=== PATIENT | male | born 1955 | race Caucasian/White ===

== ENCOUNTER 2024-07-12 16:12 | Inpatient (IN) | payer MEDICARE, OTHER, SELFPAY ==
[2024-07-12] VITALS (8 sets, daily range): BP systolic 126–152; BP diastolic 69–79; BMI 25.0; BMI 22.4
--- NOTE | 2024-07-12 12:11 | ED.GENMED ---
History of Present Illness
General
Chief Complaint: Abdominal Pain
Time Seen by Provider: 07/12/24 11:53
History of Present Illness
History of Present Illness:
69-year-old male presents to the emergency for evaluation of right lower quadrant pain that began abruptly and woke him from sleep today.He reports associated chills and nausea without fever or vomiting. No diarrhea, dysuria, or hematuria.
Prior history of inguinal hernia repair x 2
Past History
Past History
ED Past Medical History: HTN, Hypercholesterolemia and Other (chronic neck pain)
Social History
Personal:
Living: with family
Review of Systems
Review of Systems
Allergies reviewed?: Yes
All Other Systems: ROS reviewed and negative except as documented in HPI and ROS
Phy Exam
Physical Exam
Physical Exam:
GEN: Well appearing, NAD, WDWN
HEENT: Oral mucosa moist, no scleral icterus
Cardiac: Regular rate
Lung: No respiratory distress, no tachypnea
Abdomen: Soft, severe right lower quadrant tenderness, no rebound tenderness
MSK: No gross deformity or injuries
Skin: Good color, no pallor or jaundice, no rashes
Neuro: AO x3, moves all extremities freely
Psych: Calm, cooperative
Course
Orders/Labs/Results
Orders:
Orders
07/12/24 Breakfast
NPO
Allow oral meds: Yes
Allow clear liquids: Sips of Clears
NPO with Ice Chips: Yes
07/12/24 12:11
CT Abd/Pel (IV only)-DH only Urgent
Comment:
Reason For Exam: RLQ pain
07/12/24 12:47
Complete Blood Count/With Diff Urgent
Comprehensive Metabolic Panel Urgent
07/12/24 13:31
HYDROmorphone [Dilaudid] 0.5 mg IV NOW STA
07/12/24 13:36
Urinalysis Reflex To Culture Urgent
Date Specimen was Collected: 07/12/24
Time Specimen was Collected: 13:35
Urine Microscopic Reflex Cult Urgent
07/12/24 15:22
Piperacillin/Tazo 3.375 Gram [Zosyn] 3.375 gram in 50 ml IV NOW
07/12/24 15:23
HYDROmorphone [Dilaudid] 0.5 mg IV NOW STA
07/12/24 15:37
Type+Screen Stat
Prothrombin Time Urgent
07/12/24 15:50
Admit/Transfer Patient As Directed
Co-Sign Provider:
Level of Care: Inpatient admission
Assign to:: Medical/Surgical
Physician / Group: Cal
Diagnosis: Acute Appendicitis
Reason for Hospitalization: IV Abx, Surgical Consult
Expected length of stay greater than two midnights?: Yes
ELOS- Estimated Length of Stay in days: 3
I certify the patient meets the requirements for IP care: Yes
PRN Pain Medication Management As Directed
May give lesser potent ordered pain med per pt: Yes
preference::
Protocol:: Medication orders for pain may be administered in a
manner that supports deferring to patient preference
when the pt is:
- Requesting an ordered lesser potent pain medication.
Least to most potent pain medications are defined
as: acetaminophen < NSAID < tramadol < opioids
(morphine, oxycodone, hydromorphone).
- Requesting a lesser dose of the same medication IF
ORDERED.
- Requesting a less intrusive route of administration
if both routes are prescribed by the provider (PO <
IV).
07/12/24 15:52
SURGICAL CONSULT Routine
Consulting Provider: Alessandro Garcia
Was physician already notified: Yes
07/12/24 15:56
Code Status As Directed
Resuscitation Status: Full Code
07/12/24 16:00
ABO2 Urgent
BBK Wristband Number:
Associate notified that ABO2 has been ordered: [id number]
Date: 07/12/24
Time: 15:59
Supervisor Money Room ID: [id number]
07/12/24 16:03
Phytonadione [Mephyton] 10 mg PO NOW STA
07/12/24 17:11
Acetaminophen [Tylenol] 650 mg PO Q4HPRN PRN
Dextrose 5%/0.9%Sodchl 1000 ml [D5/0.9% Sodium Chloride] 1,000 ml IV 80 mls/hr
HYDROmorphone [Dilaudid] 0.25 mg IV Q3HPRN PRN
Lorazepam [Ativan] 0.5 mg PO DAILYPRN PRN
Ondansetron Injectable [Zofran] 4 mg IV Q6HPRN PRN
07/12/24 17:11
Activity As Directed
Activity Level: Out of Bed-Early Mobility
With Assistance
I&O [Intake/ Output] As Directed
Frequency: q12h
Pneumatic Compression Sleeves As Directed
Type: Knee high
Vital Signs As Directed
Frequency: Per unit guidelines
DX Deep Vein Thrombosis Video Routine
07/12/24 18:00
Ezetimibe [Zetia] 10 mg PO QPM
Rosuvastatin Calcium [Crestor] 40 mg PO QPM
07/12/24 22:00
Piperacillin/Tazo 3.375 Gram [Zosyn] 3.375 gram in 50 ml IV Q6H
07/13/24 06:00
Basic Metabolic Panel IN AM
Complete Blood Count/No Diff IN AM
Prothrombin Time IN AM
07/13/24 08:00
Amlodipine [Norvasc] 10 mg PO DAILY
Pantoprazole [Protonix] 40 mg PO DAILY
Valsartan [Diovan] 320 mg PO DAILY
07/14/24 06:00
Prothrombin Time IN AM
07/15/24 06:00
Prothrombin Time IN AM
07/16/24 06:00
Prothrombin Time IN AM
07/17/24 06:00
Prothrombin Time IN AM
Abnormal Lab Results
07/12/24 07/12/24 07/12/24
12:47 13:36 15:37
RBC 4.60 L 10^6/uL
(4.70-6.10)
MCH 31.3 H pg
(27.0-31.0)
Abs Immat Gran (auto) 0.1 H 10^3/uL
(0-0.05)
Absolute Neuts (auto) 9.5 H 10^3/uL
(1.4-6.5)
Absolute Lymphs (auto) 0.5 L 10^3/uL
(1.2-3.4)
Neutrophils % 91.1 H %
(42.2-75.2)
Lymphocytes % 4.4 L %
(20.5-51.1)
PT 29.2 H Sec
(11.4-14.6)
Glucose 113 H mg/dl
(70-99)
Urine Ketones 3+ A
(Negative)
Ur Occult Blood Reflex 1+ A
(Negative)
Urine RBC 7-10 A /HPF
(0-2)
07/12/24 12:47
07/12/24 12:47
Vital Signs
Initial and Last Documented VS:
Initial Vital Signs
Temp Pulse Resp BP Pulse Ox
98.3 F 65 16 150/79 98
07/12/24 11:20 07/12/24 11:20 07/12/24 11:20 07/12/24 11:20 07/12/24 11:20
Last Documented Vital Signs
Temp Pulse Resp BP Pulse Ox
98.7 F 69 18 152/73 94
07/12/24 17:15 07/12/24 17:15 07/12/24 17:15 07/12/24 17:15 07/12/24 17:15
MDM/Problems Addressed
MDM/Problems Addressed:
CT reveals acute appendicitis, will admit to the hospitalist service given his complex medical history, surgery will be consulted for operative intervention if appropriate
*Critical Care Note
Total Time (30-74mins, 75-104mins- exclusive of procedures): Not Applicable
ED Attending Note
-
Portions of this chart may have been created with voice recognition software.� Occasional wrong word or��sound alike� substitutions may have occurred due to the inherent limitations of voice recognition software.
Discharge Plan
Departure
Patient Disposition: Admit
Date of Disposition: 07/12/24
Time of Disposition: 14:46
Admit to: Med/Surg
Presentation/result/management discussed w/ accepting MD/DO: Surgery
Discharge Problem:
Acute appendicitis
Interventions
Interventions:
*Risk Screen - Suicide Last Done: 07/12/24 11:20
*General Assessment Last Done: 07/12/24 11:20
*Neglect/Abuse Screening Last Done: 07/12/24 11:20
ED- Fall Risk Assessment Last Done: 07/12/24 17:13
*ED COVID-19 Vaccine History Last Done: 07/12/24 17:13
*Nursing Disposition Last Done: 07/12/24 17:13
RA-Dzrqtj-Sbqyderiur Assessment Last Done: 07/12/24 12:46
Discharge Date and Time
Discharge Date/Time: 07/12/24 17:13
[2024-07-12 13:09] LABS: % Basophils 0.2 % (0-2); % Eosinophils 0.2 % (0-6); % Immature Granulocytes 0.5 % (0-0.5); % Lymphocytes 4.4 % (20.5-51.1); % Monocytes 3.6 % (1.7-9.3); % Neutrophils 91.1 % (42.2-75.2); Absolute Immature Granulocytes 0.1 10^3/uL (0-0.05); Absolute Lymphocytes 0.5 10^3/uL (1.2-3.4); Absolute Monocytes 0.4 10^3/uL (0.1-0.6); Absolute Neutrophils 9.5 10^3/uL (1.4-6.5); Hematocrit 40.1 % (39.0-52.0); Hemoglobin 14.4 g/dL (13.0-18.0); Mean Corp Hgb Conc. 35.9 g/dL (33.0-37.0); Mean Corpuscular Hgb 31.3 pg (27.0-31.0); Mean Corpuscular Volume 87.2 fL (80.0-94.0); Mean Platelet Volume 9.5 fL (7.4-10.4); Nucleated Red Blood Cells % 0 % (-); Platelet Count 149 10^3/uL (130-400); Red Cell Dist. Width 13.7 % (11.5-14.5); White Blood Cell Count 10.4 10^3/uL (4.8-10.8)
[2024-07-12 13:24] LABS: ALT (SGPT) 33 U/L (0-50); AST (SGOT) 37 U/L (17-59); Albumin 4.8 g/dl (3.5-5.0); Alkaline Phosphatase 46 U/L (38-126); Blood Urea Nitrogen 16 mg/dl (9-20); Calcium 9.5 mg/dl (8.4-10.2); Carbon Dioxide 22 mmol/L (22-30); Chloride 98 mmol/L (98-107); Estimated Creatinine Clearance 111 ml/min; Glucose 113 mg/dl (70-99); Potassium 4.8 mmol/L (3.5-5.1); Sodium 136 mmol/L (135-145); Total Protein 6.9 g/dl (6.3-8.2); eGFR > 60.00
[2024-07-12] MEDS: DILAUDID 0.5 MG IV ×2 (13:33→15:30)
[2024-07-12 13:51] LABS: Urine Albumin Negative (Neg - Trace); Urine Bilirubin Negative (Negative); Urine Color Yellow; Urine Glucose Negative (Negative); Urine Ketone 3+ (Negative); Urine Leukocyte Negative (Negative); Urine Nitrite Negative (Negative); Urine Occult Blood 1+ (Negative); Urine Urobilinogen Negative (Neg - 1+)
[2024-07-12 13:58] LABS: Urine Character Clear (Clear)
[2024-07-12 14:46] LABS: Urine Mucus Moderate
[2024-07-12 14:47] LABS: Urine Amorphous Seen
[2024-07-12 14:48] LABS: Urine White Cell 0-2 /HPF (0-5)
[2024-07-12] MEDS: ZOSYN 50 IV ×2 (15:29→22:00)
[2024-07-12 15:59] LABS: INR 2.77; PT 29.2 Sec (11.4-14.6)
--- NOTE | 2024-07-12 16:00 | HPS.HSE ---
Family Physician
-
Family Physician: Keshia Capone
Chief Complaint
-
Abdominal Pain
History of Present Illness
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 Patient awoke suddenly around 3AM this morning with abdominal pain. He reports
associated nausea with dry heaves, but no vomiting. He reports sweats and chills last night, but no recorded fevers at home. He reports abdominal pain continued to worsen throughout the morning prompting him to come to the emergency department for
evaluation.
Medical History
Past Medical History
Past Medical History: Reports Other
Additional Past Medical History:
Essential Hypertension
Hyperlipidemia
Recurrent DVT
GERD
Past Surgical History: Reports Other
Additional Past Surgical History:
Right Inguinal Hernia Repairs
Right Rotator Cuff Repair
Social History
Tobacco: Non-smoker
Alcohol: Daily (Two drinks nightly)
Family History
Family History: Not pertinent
Allergies / Home Medications
Allergies reflects when Allergies were last updated in [facility].
Home Medications with original date entered in [facility]
Allergy/Medication List:
Allergies
Allergy/AdvReac Type Severity Reaction Status Date / Time
No Known Allergies Allergy Verified 07/12/24 11:19
Home Medications
amlodipine 10 mg tablet 10 mg PO DAILY 07/12/24
azelastine 137 mcg (0.1 %) nasal spray 2 spray intranasal BIDPRN PRN congestion 07/12/24
calcium carbonate 500 mg PO DAILY 07/12/24
cholecalciferol (vitamin D3) 50 mcg (2,000 unit) tablet (Vitamin D3) 50 mcg PO DAILY 07/12/24
clobetasol 0.05 % topical cream 1 applic topical DAILYPRN PRN eczema breakout 07/12/24
cyanocobalamin (vitamin B-12) 1,000 mcg tablet 1,000 mcg PO DAILY 07/12/24
ezetimibe 10 mg tablet 10 mg PO QPM 07/12/24
lorazepam 0.5 mg tablet 0.5 mg PO DAILYPRN PRN panic 07/12/24
meclizine 25 mg tablet 25 mg PO TIDPRN PRN vertigo 07/12/24
omeprazole 40 mg capsule,delayed release 40 mg PO DAILY 07/12/24
polyvinyl alcohol 1.4 % eye drops 1 drp BOTH EYES Q4HPRN PRN dry eyes 07/12/24
ranitidine HCl 300 mg tablet 75 mg PO DAILY 07/12/24
rosuvastatin 40 mg tablet 40 mg PO QPM 07/12/24
tadalafil 10 mg tablet 10 mg PO DAILYPRN PRN ed 07/12/24
valsartan 320 mg tablet 320 mg PO DAILY 07/12/24
vitamin E 268 mg (400 unit) capsule 268 mg PO DAILY 07/12/24
warfarin 5 mg tablet 5 mg PO QPM 07/12/24
Review of Systems
-
A 12 point ROS was completed and negative except as noted: Yes
Constitutional: Reports Chills; Denies Fever
Respiratory: Denies Cough or Trouble Breathing
Cardiac: Denies Chest Pain or Palpitations
Physical Exam
Vital Signs
Vital Signs
Temp Pulse Resp BP Pulse Ox
98.3 F 70 15 134/70 93
07/12/24 11:20 07/12/24 15:45 07/12/24 15:45 07/12/24 14:00 07/12/24 15:45
Physical Exam
General: Comfortable and Conversant
HEENT: Anicteric and Moist mucous membranes
Respiratory: Clear and Non Labored Respirations
Cardiac: S1/S2 and Regular Rhythm
GI: Soft and Tender (Significant tenderness to palpation right lower quadrant)
Rectal: Deferred by Provider
Musculoskeletal: No Clubbing, No Cyanosis and No Edema
Skin: Warm and Dry
Neuro: Awake, Alert, Oriented and Nonfocal/grossly intact
Psych: Calm
Laboratory Results
-
07/12/24 12:47
07/12/24 12:47
Laboratory Results
Total Bilirubin 1.0 mg/dl (0.2-1.3) 07/12/24 12:47
AST 37 U/L (17-59) 07/12/24 12:47
ALT 33 U/L (0-50) 07/12/24 12:47
Alkaline Phosphatase 46 U/L (38-126) 07/12/24 12:47
Abd/Pelvis CT Scan:
There is acute appendicitis
The fluid-filled appendix measures 12 mm in diameter with mild periappendiceal inflammatory stranding and a 3 mm appendicolith
Data Reviewed
-
CT Scan: Report Reviewed by me
Lab Data: Labs Reviewed by me
Impression/Plan
-
Acute Appendicitis
-Consult General Surgery
-Continue NPO/IVFs
-Continue Zosyn
-Continue Dilaudid for Pain and Zofran for Nausea
Recurrent DVT
-INR currently 2.77 therefore will give dose of Vitamin K now
-Monitor INR Daily
-Will likely need bridge therapy given recurrent nature of his previous DVTs
Essential Hypertension
-Continue amlodipine and valsartan with hold parameters
Hyperlipidemia
-Continue Crestor and Zetia
GERD
-Continue Protonix
Code Status: Full Code
--- NOTE | 2024-07-12 16:05 | CON.GS ---
Medical History
-
Chief Complaint: abdominal pain
History of Present Illness:
Mr. Leal is a 69 yo male with a h/o HTN, HLD and provoked DVT to the RLE after a fracture to the foot with recurrence of DVT after discontinuation of anticoagulation now maintained on warfarin chronically who presents with abdominal pain which
began very early this morning awakening him from sleep. Initially the pain was near the umbilicus but then localized to the RLQ and was quite severe. He had associated chills and subjective fever. He notes the sensation that he had to pass a BM but
was unable. He had mild nausea and some dry heaving. On exam, there is significant local tenderness to the RLQ. No Rovsing or peritoneal signs.
Past Medical History
Past Medical History: GERD, HTN, Hypercholesterolemia and Other (DVT x2 RLE)
Past Surgical History: Hernia Repair (right inguinal hernia repair x2) and Orthopedic (right rotator cuff )
Social History
Tobacco: Non-Smoker
Alcohol: Occasional
Personal:
Living: With Family
Family History
Family History: Reviewed & Not Pertinent
Allergies / Home Medications
Allergy/AdvReac Type Severity Reaction Status Date / Time
No Known Allergies Allergy Verified 07/12/24 11:19
�Medication �Instructions �Recorded �Confirmed �Type
amlodipine 10 mg tablet 10 mg PO DAILY 07/12/24 07/12/24 History
azelastine 137 mcg (0.1 %) nasal 2 spray intranasal BIDPRN PRN 07/12/24 07/12/24 History
spray congestion
calcium carbonate 500 mg PO DAILY 07/12/24 07/12/24 History
cholecalciferol (vitamin D3) 50 50 mcg PO DAILY 07/12/24 07/12/24 History
mcg (2,000 unit) tablet (Vitamin
D3)
clobetasol 0.05 % topical cream 1 applic topical DAILYPRN PRN 07/12/24 07/12/24 History
eczema breakout
cyanocobalamin (vitamin B-12) 1,000 mcg PO DAILY 07/12/24 07/12/24 History
1,000 mcg tablet
ezetimibe 10 mg tablet 10 mg PO QPM 07/12/24 07/12/24 History
lorazepam 0.5 mg tablet 0.5 mg PO DAILYPRN PRN panic 07/12/24 07/12/24 History
meclizine 25 mg tablet 25 mg PO TIDPRN PRN vertigo 07/12/24 07/12/24 History
omeprazole 40 mg capsule,delayed 40 mg PO DAILY 07/12/24 07/12/24 History
release
polyvinyl alcohol 1.4 % eye drops 1 drp BOTH EYES Q4HPRN PRN dry eyes 07/12/24 07/12/24 History
ranitidine HCl 300 mg tablet 75 mg PO DAILY 07/12/24 07/12/24 History
rosuvastatin 40 mg tablet 40 mg PO QPM 07/12/24 07/12/24 History
tadalafil 10 mg tablet 10 mg PO DAILYPRN PRN ed 07/12/24 07/12/24 History
valsartan 320 mg tablet 320 mg PO DAILY 07/12/24 07/12/24 History
vitamin E 268 mg (400 unit) capsule 268 mg PO DAILY 07/12/24 07/12/24 History
warfarin 5 mg tablet 5 mg PO QPM 07/12/24 07/12/24 History
Review of Systems
-
History Source: Patient and Family
All other systems: Negative unless noted
A 10 point review of systems was completed, and was negative except as per HPI.
Physical Exam
Vital Signs
Temp Pulse Resp BP Pulse Ox
98.3 F 70 15 134/70 93
07/12/24 11:20 07/12/24 15:45 07/12/24 15:45 07/12/24 14:00 07/12/24 15:45
07/11/24 07/12/24 07/13/24
06:59 06:59 06:59
Actual Weight 86 kg
Body Mass Index (BMI) 25.0
Lab Results
07/12/24 12:47
07/12/24 12:47
WBC 10.4 10^3/uL (4.8-10.8) 07/12/24 12:47
Hgb 14.4 g/dL (13.0-18.0) 07/12/24 12:47
Hct 40.1 % (39.0-52.0) 07/12/24 12:47
Plt Count 149 10^3/uL (130-400) 07/12/24 12:47
Abs Immat Gran (auto) 0.1 10^3/uL (0-0.05) H 07/12/24 12:47
Neutrophils % 91.1 % (42.2-75.2) H 07/12/24 12:47
Physical Exam
General: Well Developed and Well Nourished
HEENT: Moist Mucous Membranes
Respiratory: Non Labored Respirations
GI: Soft, Non Distended and Tender (RLQ)
Skin: Warm and Dry
Neuro: Awake, Alert and AO x 3
Psych: Calm
Data Reviewed
-
CT Scan: Image Personally Visualized and interpreted, Report Reviewed by me, Discussed with Physician, Discussed with Patient and Discussed with Family
Labs: Labs Reviewed by me, Discussed with Physician, Discussed with Patient and Discussed with Family
Old Records: Reviewed
Assessment / Plan
-
69 yo male with h/o dvt on warfarin (INR 2.77) presenting with RLQ pain beginning about [address] imaging reviewed with acute appendicitis present with presence of appendicolith. No leukocytosis or fevers. Vital signs stable.
Admit to medicine service. Would recommend laparoscopic appendectomy as soon as INR is decreased enough to safely preform surgery
--Ok for clears tonight
--NPO in AM for tentative OR
--Reverse warfarin if medically appropriate otherwise will follow off warfarin until subtherapeutic
--Continue IV abx
--Medical management as per primary team
--- NOTE | 2024-07-12 16:07 | W.PN.UPDATE ---
Update Note
Progress Note Update
This is an addendum to the H&P written by Melody Marquez on 07/12/2024. Patient seen and examined independently with PA.
69-year-old male past medical history of recurrent DVT in right lower extremity on Coumadin, hypertension, hypercholesteremia, GERD, here with acute appendicitis.
N.p.o., IV fluids, Zosyn, general surgery consulted.
INR 2.77 so give vitamin K dose. Recheck INR in the morning. Will likely require coumadin bridge after surgery.
[2024-07-12] MEDS: MEPHYTON 10 MG PO (16:45)
[2024-07-12] MEDS: ZOFRAN 4 MG IV (17:42)
[2024-07-12] MEDS: D5/0.9% SODIUM CHLORIDE 1000 IV (17:43)
[2024-07-12] MEDS: DILAUDID 0.25 MG IV ×3 (17:43→22:29)
[2024-07-12] MEDS: CRESTOR 40 MG PO (17:43)
[2024-07-12] MEDS: ZETIA 10 MG PO (17:43)
[2024-07-12] MEDS: TYLENOL 650 MG PO (19:34)
[2024-07-12] MEDS: ATIVAN 0.5 MG PO (22:00)
--- NOTE | 2024-07-12 22:45 | PTCARENOTE ---
Scheduled pain medication not providing adequate pain relief, HP notified and 1x dose Dilaudid given.
[2024-07-13] VITALS (11 sets, daily range): BP systolic 121–150; BP diastolic 56–79
[2024-07-13] MEDS: DILAUDID 0.25 MG IV (01:17)
[2024-07-13] MEDS: DILAUDID 0.5 MG IV ×5 (02:46→21:55)
[2024-07-13] MEDS: ZOSYN 50 IV ×4 (04:07→23:18)
[2024-07-13] MEDS: D5/0.9% SODIUM CHLORIDE 1000 IV ×2 (05:43→21:52)
[2024-07-13 06:45] LABS: INR 2.46; PT 26.6 Sec (11.4-14.6)
[2024-07-13 07:01] LABS: Hematocrit 38.5 % (39.0-52.0); Hemoglobin 13.6 g/dL (13.0-18.0); Mean Corp Hgb Conc. 35.3 g/dL (33.0-37.0); Mean Corpuscular Hgb 31.3 pg (27.0-31.0); Mean Corpuscular Volume 88.7 fL (80.0-94.0); Mean Platelet Volume 9.8 fL (7.4-10.4); Platelet Count 148 10^3/uL (130-400); Red Blood Cell Count 4.34 10^6/uL (4.70-6.10); Red Cell Dist. Width 14.1 % (11.5-14.5); White Blood Cell Count 13.3 10^3/uL (4.8-10.8)
[2024-07-13 07:43] LABS: Blood Urea Nitrogen 13 mg/dl (9-20); Calcium 8.8 mg/dl (8.4-10.2); Carbon Dioxide 22 mmol/L (22-30); Chloride 100 mmol/L (98-107); Estimated Creatinine Clearance 94 ml/min; Glucose 135 mg/dl (70-99); Potassium 4.2 mmol/L (3.5-5.1); Sodium 137 mmol/L (135-145); eGFR > 60.00
[2024-07-13] MEDS: DIOVAN 320 MG PO (07:54)
[2024-07-13] MEDS: NORVASC 10 MG PO (07:55)
[2024-07-13] MEDS: PROTONIX 40 MG PO (07:55)
--- NOTE | 2024-07-13 11:10 | W.PN.HOSP.TC ---
Today's Communication/Plan
-
cont ZOsyn, see PN
Assessment / Plan
Assessment / Plan
69yo M with PMHx of HTN, HLD, DVT on life-long Coumadin , GERD, allergic rhinitis came with acute onset of abdominal pain in the morning before admisison, found acute unperforated appendicitis
A/P:
#Acute non-perforated appendicitis
NPO
Zosyn
GEnSx for mgmt
pain mgmt
Add Orimef as DIlaudid did not last long enough even with frequent injections (to avoid significant sedation with additional opioids)
#Hx of DVT on life long AC
s/p vit K 10mg in ED
Follow INR, pending <2.0 for surgical intervention and heparin bridging
Plan for FFP if urgent intervention planned, otherwise - will let INR drift down on its own as vit K activity is delayed (consent signed)
#Hepatic cysts
#L renal cyst
#Diverticulosis
High fiber diet
no addisional f/u
#GERD
#EssentiaL HT
#HLD
cont home meds when able
Use IV labetalol if needed for BP >180/105
DVT ppx - see above
FUll code
I have spent at least 59min reviewing chart, test results, communicationg with consultants and direct patient care
Anticipated Discharge: > 48 hours
Subjective/Interval History
-
Date of Service: July 13, 2024
Objective Data
-
Labs:
Laboratory Results
07/13/24
06:21
WBC 13.3 H
Hgb 13.6
Hct 38.5 L
Plt Count 148
PT 26.6 H
INR 2.46
Sodium 137
Potassium 4.2
Chloride 100
Carbon Dioxide 22
BUN 13
Creatinine 0.8
Glucose 135 H
Calcium 8.8
Vital Signs:
Vital Signs
Temp Pulse Resp BP Pulse Ox
99.0 F 72 18 142/68 96
07/13/24 08:07 07/13/24 08:07 07/13/24 08:07 07/13/24 08:07 07/13/24 08:07
I&O
07/12/24 07/13/24 07/14/24
06:59 06:59 05:59
Intake Total 1620 / 1620
Balance 1620 / 1620
Review of Systems
-
History Source: Patient
All other systems: Reviewed and negative
Abdomen/GI: Reports Abdominal Pain
Physical Exam
-
General: No Apparent Distress
HEENT: Normocephalic
Respiratory: Clear to Auscultation
Cardiac: Regular Rhythm
GI: Tender
Musculoskeletal: No Clubbing, No Cyanosis and No Edema
Neuro: Awake, Alert, Oriented and AO x 3
Psych: Calm
[2024-07-13] MEDS: OFIRMEV 100 IV ×2 (11:59→19:27)
[2024-07-13 12:44] LABS: Glycohemoglobin (HgbA1c) 5.5 % (4.0-5.6)
[2024-07-13 12:58] LABS: INR 2.24; PT 24.6 Sec (11.4-14.6)
--- NOTE | 2024-07-13 13:16 | W.PN.GS2 ---
Today's Communication / Plan
-
INR reversal
anticipate OR tomorrow
NPO
IV abx
Assessment / Plan
-
69 yo male with h/o dvt on warfarin (INR 2.77) presenting with RLQ pain beginning about [address] imaging reviewed with acute appendicitis present with presence of appendicolith. No leukocytosis or fevers. Vital signs stable.
Admit to medicine service. Would recommend laparoscopic appendectomy as soon as INR is decreased enough to safely preform surgery
s/p Vit K
--Remain NPO
--Recommend reversing INR to goal 1.5-1.6 if able
--Hematology/oncology consult. ?IVC filter
--Continue IV abx
--Medical management as per primary team
--Will anticipate operating tomorrow AM once INR reversed
Subjective Data
-
Date of Service: July 13, 2024
Patient states he is still in RLQ pain. He denies nausea or vomiting.
Objective Data
-
Intake and Output
07/12/24 07/13/24 07/14/24
06:59 06:59 05:59
Intake Total 1620 / 1620
Balance 1620 / 1620
Intake:
Oral fluids 480 / 480
IV fluids (Total) 1040 / 1040
IV piggybacks 100 / 100
Other:
Number of approximated MODERATE 2
amounts of urine
Number of approximated LARGE 1
amounts of urine
Vital Signs
Temp Pulse Resp BP Pulse Ox
99.0 F 72 18 142/68 96
07/13/24 08:07 07/13/24 08:07 07/13/24 08:07 07/13/24 08:07 07/13/24 08:07
Lab Results
07/13/24 06:21
07/13/24 06:21
Calcium 8.8 mg/dl (8.4-10.2) 07/13/24 06:21
Total Bilirubin 1.0 mg/dl (0.2-1.3) 07/12/24 12:47
AST 37 U/L (17-59) 07/12/24 12:47
ALT 33 U/L (0-50) 07/12/24 12:47
Alkaline Phosphatase 46 U/L (38-126) 07/12/24 12:47
Total Protein 6.9 g/dl (6.3-8.2) 07/12/24 12:47
Albumin 4.8 g/dl (3.5-5.0) 07/12/24 12:47
Physical Exam
-
General: Well Developed and Well Nourished
HEENT: Moist Mucous Membranes
Respiratory: Non Labored Respirations
GI: Soft, Non Distended and Tender (RLQ)
Skin: Warm and Dry
Neuro: Awake, Alert and AO x 3
Psych: Calm
--- NOTE | 2024-07-13 16:03 | CON.ONC ---
Impression
Impression
Remote but recurrent DVT requiring lifelong anticoagulation
Acute appendicitis
Hypertension
Hyperlipidemia
GERD
Plan
Plan
Short-term reversal for abdominal surgery
FFP 750-800 mL replacement based on weight
Additional Mephyton 5 mg p.o. now with NPO
Monitor INR post FFP
Monitor INR in the AM
Discontinue vitamin D
Antiphospholipid panel
Sequential TEDS
Postop day 1 Lovenox 40 mg
Postop day 2 80 mg mg/kg twice daily provided no bleeding complications and surgery agreeable
No clinical indication of active thrombosis
Patient's previous thrombotic episode remote
No anticipated role for IVC filter
Repeat ultrasound of the lower extremities to rule out occlusive clot preop
Patient known to have nonocclusive 2021 clot in the right lower extremity
Initiate warfarin or evaluate cost of transition to Eliquis
If remains on warfarin consider home monitoring
Patient History
History of Present Illness
Cayden Leal is a pleasant 69-year-old gentleman maintained on anticoagulation since a thrombus of the right lower extremity which occurred with reversible cause In the summer 2020. He was initially treated with 6 months of warfarin therapy
following which warfarin was discontinued with a baseline D-dimer 0.2.A repeat D-dimer Performed 4 weeks later revealed an increased to 2.2A and he was subsequently restarted on warfarin. Following an additional 4 months of therapy Second attempt
attempt to withdrawal warfarin was again unsuccessful. After 3 months of observation his D-dimer bro abruptly to greater than 5 and a repeat ultrasound revealed evidence of recurrence of nonocclusive thrombus. He has remained on full dose
anticoagulation with target INR greater than 2 since that time. He now presents to the emergency room with right lower quadrant abdominal pain Without leukocytosis or fever. CT scan revealed evidence of acute appendicitis. Hematology has been
asked to manage his anticoagulation in preparation For appendectomy and following surgery. Thrombophilia assessment was never pursued. There is no documentation of antiphospholipid antibody syndrome. Warfarin appears to have been Patient choice
secondary to cost.
Past-Medical/Surgical History
Past Medical History: GERD, HTN, Hypercholesterolemia and (DVT x2 RLE)
Past Surgical History: Hernia Repair (right inguinal hernia repair x2) and Orthopedic (right rotator cuff )
Social History
Tobacco: Non-Smoker
Alcohol: Occasional
Personal:
Living: With Family
Family History
Reviewed & Not Pertinent
Patient Medication
�Medication �Instructions �Recorded �Confirmed �Last Taken �Type
amlodipine 10 mg tablet 10 mg PO DAILY Blood Pressure 07/12/24 07/12/24 Unknown History
azelastine 137 mcg (0.1 %) nasal 2 spray intranasal BIDPRN PRN 07/12/24 07/12/24 Unknown History
spray congestion
calcium carbonate 500 mg PO DAILY Supplement 07/12/24 07/12/24 Unknown History
cholecalciferol (vitamin D3) 50 50 mcg PO DAILY Supplement 07/12/24 07/12/24 Unknown History
mcg (2,000 unit) tablet (Vitamin
D3)
clobetasol 0.05 % topical cream 1 applic topical DAILYPRN PRN 07/12/24 07/12/24 Unknown History
eczema breakout
cyanocobalamin (vitamin B-12) 1,000 mcg PO DAILY Supplement 07/12/24 07/12/24 Unknown History
1,000 mcg tablet
ezetimibe 10 mg tablet 10 mg PO QPM High Cholesterol 07/12/24 07/12/24 07/11/24 History
lorazepam 0.5 mg tablet 0.5 mg PO DAILYPRN PRN panic 07/12/24 07/12/24 Unknown History
meclizine 25 mg tablet 25 mg PO TIDPRN PRN vertigo 07/12/24 07/12/24 07/10/24 History
omeprazole 40 mg capsule,delayed 40 mg PO DAILY GERD 07/12/24 07/12/24 Unknown History
release
polyvinyl alcohol 1.4 % eye drops 1 drp BOTH EYES Q4HPRN PRN dry eyes 07/12/24 07/12/24 Unknown History
ranitidine HCl 300 mg tablet 75 mg PO DAILY Gastrointestinal 07/12/24 07/12/24 Unknown History
Issue
rosuvastatin 40 mg tablet 40 mg PO QPM High Cholesterol 07/12/24 07/12/24 07/11/24 History
tadalafil 10 mg tablet 10 mg PO DAILYPRN PRN ed 07/12/24 07/12/24 Unknown History
valsartan 320 mg tablet 320 mg PO DAILY Blood Pressure 07/12/24 07/12/24 Unknown History
vitamin E 268 mg (400 unit) capsule 268 mg PO DAILY Supplement 07/12/24 07/12/24 Unknown History
warfarin 5 mg tablet 5 mg PO QPM Blood Clot 07/12/24 07/12/24 07/11/24 History
Prevention/Tx
Active Medications
Generic Name Dose Route Start Last Admin
Trade Name Freq PRN Reason Stop Dose Admin
Acetaminophen 650 mg 07/12/24 17:11 07/12/24 19:34
Acetaminophen 325 Mg Tablet PO 08/09/24 17:10 650 mg
Q4HPRN PRN Administration
mild pain/ fever>100.5F
Amlodipine Besylate 10 mg 07/13/24 08:00 07/13/24 07:55
Amlodipine 10 Mg Tablet PO 08/10/24 07:59 10 mg
DAILY BENY Administration
Ezetimibe 10 mg 07/12/24 18:00 07/12/24 17:43
Ezetimibe (Zetia) 10 Mg Tablet PO 08/09/24 17:59 10 mg
QPM BENY Administration
Hydromorphone HCl 0.25 mg 07/13/24 02:00
Hydromorphone 0.25 Mg/0.5 Ml Syringe IV 07/27/24 01:59
Q3HPRN PRN
moderate pain
Hydromorphone HCl 0.5 mg 07/13/24 09:08
Hydromorphone 0.5 Mg/0.5 Ml Syringe IV 07/27/24 09:07
Q3HPRN PRN
severe pain
Dextrose/Sodium Chloride 1,000 mls @ 80 mls/hr 07/12/24 17:11 07/13/24 05:43
D5/0.9% Sodium Chloride IV 1,000 mls
.[id number] BENY Administration
Piperacillin Sod/Tazobactam Sod 3.375 gram in 50 mls @ 100 mls/hr 07/12/24 22:00 07/13/24 10:30
Zosyn IV 50 mls
Q6H BENY Administration
Acetaminophen 1,000 mg in 100 mls @ 400 mls/hr 07/13/24 12:00 07/13/24 11:59
Ofirmev IV 07/14/24 11:59 100 mls
Q8H BENY Administration
Protocol
Lorazepam 0.5 mg 07/12/24 17:11 07/12/24 22:00
Lorazepam 0.5 Mg Tablet PO 08/09/24 17:10 0.5 mg
DAILYPRN PRN Administration
anxiety/panic attack
Ondansetron HCl 4 mg 07/12/24 17:11 07/12/24 17:42
Ondansetron 4 Mg/2 Ml Vial IV 08/09/24 17:10 4 mg
Q6HPRN PRN Administration
NAUSEA/VOMITING
Pantoprazole Sodium 40 mg 07/13/24 08:00 07/13/24 07:55
Pantoprazole 40 Mg Delayed Release Tablet PO 08/10/24 07:59 40 mg
DAILY BENY Administration
Rosuvastatin Calcium 40 mg 07/12/24 18:00 07/12/24 17:43
Rosuvastatin (Crestor) 40 Mg Tablet PO 08/09/24 17:59 40 mg
QPM BENY Administration
Sodium Chloride 0 flush 07/12/24 18:00
Sodium Chloride 0.9% (Flush) Syringe IV 08/09/24 17:59
PER PROTOCOL BENY
Valsartan 320 mg 07/13/24 08:00 07/13/24 07:54
Valsartan 80 Mg Tablet PO 08/10/24 07:59 320 mg
DAILY BENY Administration
Review of Systems
-
12 point review of systems fails elicit additional complaints other than those reviewed in HPI. He reports relative stability of his INR in the past and no atypical bleeding.
Physical Exam
-
Physical Exam
General: Well Developed and Well Nourished
HEENT: Moist Mucous Membranes
Respiratory: Non Labored Respirations
GI: Soft, Non Distended and Tender (RLQ)
Skin: Warm and Dry
Neuro: Awake, Alert and AO x 3
Psych: Calm
Labs
Lab Results
WBC 13.3 10^3/uL (4.8-10.8) H 07/13/24 06:21
RBC 4.34 10^6/uL (4.70-6.10) L 07/13/24 06:21
Hgb 13.6 g/dL (13.0-18.0) 07/13/24 06:21
Hct 38.5 % (39.0-52.0) L 07/13/24 06:21
MCV 88.7 fL (80.0-94.0) 07/13/24 06:21
MCH 31.3 pg (27.0-31.0) H 07/13/24 06:21
MCHC 35.3 g/dL (33.0-37.0) 07/13/24 06:21
RDW 14.1 % (11.5-14.5) 07/13/24 06:21
Plt Count 148 10^3/uL (130-400) 07/13/24 06:21
MPV 9.8 fL (7.4-10.4) 07/13/24 06:21
Abs Immat Gran (auto) 0.1 10^3/uL (0-0.05) H 07/12/24 12:47
Absolute Neuts (auto) 9.5 10^3/uL (1.4-6.5) H 07/12/24 12:47
Absolute Lymphs (auto) 0.5 10^3/uL (1.2-3.4) L 07/12/24 12:47
Absolute Monos (auto) 0.4 10^3/uL (0.1-0.6) 07/12/24 12:47
Absolute Eos (auto) 0.0 10^3/uL (0-0.7) 07/12/24 12:47
Absolute Basos (auto) 0.0 10^3/uL (0-0.2) 07/12/24 12:47
Immature Gran % 0.5 % (0-0.5) 07/12/24 12:47
Neutrophils % 91.1 % (42.2-75.2) H 07/12/24 12:47
Lymphocytes % 4.4 % (20.5-51.1) L 07/12/24 12:47
Monocytes % 3.6 % (1.7-9.3) 07/12/24 12:47
Eosinophils % 0.2 % (0-6) 07/12/24 12:47
Basophils % 0.2 % (0-2) 07/12/24 12:47
Creatinine 0.8 mg/dL (0.7-1.3) 07/13/24 06:21
Vital Signs
Vital Signs
Temp Pulse Resp BP Pulse Ox
100 F 67 18 139/69 94
07/13/24 15:29 07/13/24 15:29 07/13/24 15:29 07/13/24 15:29 07/13/24 15:07
--- NOTE | 2024-07-13 16:07 | CM ---
Initial assessment completed with pt at bedside.
Pt is indep. at baseline and lives with his in a 2 story home with 2ste.
There is a powder room on the 1st floor and full bath and bedroom on the 2nd floor.
No dme/VN/SNF hx
PCP; Keshia Capone
Pharm; [facility]
PLAN; dc to home with no anticipated needs
[2024-07-13] MEDS: MEPHYTON 5 MG PO (16:44)
[2024-07-13] MEDS: ZETIA 10 MG PO (17:44)
[2024-07-13] MEDS: CRESTOR 40 MG PO (17:45)
--- NOTE | 2024-07-13 19:33 | PTCARENOTE ---
Pt FFp transfusion completed, VSS resting in bed scheduled pain medications given @ this time. Pt educated to call staff is pain increases or overall changes in assessment. at bedside, call escobar within reach
[2024-07-13] MEDS: ATIVAN 0.5 MG PO (22:06)
[2024-07-14] VITALS (13 sets, daily range): BP systolic 116–145; BP diastolic 58–76
[2024-07-14 00:26] LABS: INR 1.45; PT 17.4 Sec (11.4-14.6)
[2024-07-14] MEDS: OFIRMEV 100 IV (03:10)
[2024-07-14] MEDS: ZOSYN 50 IV ×4 (04:05→22:41)
[2024-07-14 06:38] LABS: % Basophils 0.2 % (0-2); % Eosinophils 0.3 % (0-6); % Immature Granulocytes 0.3 % (0-0.5); % Lymphocytes 9.4 % (20.5-51.1); % Monocytes 6.6 % (1.7-9.3); % Neutrophils 83.2 % (42.2-75.2); Absolute Lymphocytes 0.9 10^3/uL (1.2-3.4); Absolute Monocytes 0.6 10^3/uL (0.1-0.6); Absolute Neutrophils 8.1 10^3/uL (1.4-6.5); Hematocrit 34.8 % (39.0-52.0); Hemoglobin 12.2 g/dL (13.0-18.0); Mean Corp Hgb Conc. 35.1 g/dL (33.0-37.0); Mean Corpuscular Hgb 32.4 pg (27.0-31.0); Mean Corpuscular Volume 92.6 fL (80.0-94.0); Mean Platelet Volume 9.5 fL (7.4-10.4); Nucleated Red Blood Cells % 0 % (-); Platelet Count 133 10^3/uL (130-400); Red Blood Cell Count 3.76 10^6/uL (4.70-6.10); Red Cell Dist. Width 14.1 % (11.5-14.5); White Blood Cell Count 9.7 10^3/uL (4.8-10.8)
[2024-07-14 06:42] LABS: INR 1.35; PT 16.5 Sec (11.4-14.6)
[2024-07-14 07:07] LABS: ALT (SGPT) 19 U/L (0-50); AST (SGOT) 20 U/L (17-59); Albumin 3.7 g/dl (3.5-5.0); Alkaline Phosphatase 44 U/L (38-126); Blood Urea Nitrogen 11 mg/dl (9-20); Calcium 8.7 mg/dl (8.4-10.2); Carbon Dioxide 28 mmol/L (22-30); Chloride 101 mmol/L (98-107); Estimated Creatinine Clearance 83 ml/min; Glucose 126 mg/dl (70-99); Potassium 3.8 mmol/L (3.5-5.1); Sodium 137 mmol/L (135-145); Total Bilirubin 1.8 mg/dl (0.2-1.3); Total Protein 5.8 g/dl (6.3-8.2); eGFR > 60.00
[2024-07-14] MEDS: PROTONIX 40 MG PO (07:58)
[2024-07-14] MEDS: NORVASC PO (08:09)
[2024-07-14] MEDS: DIOVAN PO (08:09)
[2024-07-14] MEDS: DILAUDID 0.5 MG IV (08:39)
--- NOTE | 2024-07-14 10:11 | W.PN.ONC ---
Today's Communication / Plan
-
FFP 750-800 mL replacement completed
INR in the target range
Mephyton total of 15 mg will need aggressive postop Coumadin therapy
Monitor INR
Discontinue vitamin E
Antiphospholipid panel To ascertain whether will be appropriate to convert to prophylactic apixaban when generic
Sequential TEDS
Postop day 1 Lovenox 40 mg
Postop day 2 80 mg mg/kg twice daily provided no bleeding complications and surgery agreeable
Initial dose of warfarin 12.5 mg Postop day 1 along with Lovenox
Previous thrombotic episode remote, ultrasound revealed resolution of previously noted nonocclusive clot from 2021
If remains on warfarin consider home monitoring
Impression
Impression
Remote but recurrent DVT requiring lifelong anticoagulation
Acute appendicitis
Hypertension
Hyperlipidemia
GERD
Subjective/Objective
Subjective/Objective
Patient tolerated FFP. Had no difficulty overnight.
Vital Signs:
Vital Signs
Temp Pulse Resp BP Pulse Ox
98.7 F 61 16 134/68 98
07/14/24 07:42 07/14/24 07:42 07/14/24 07:42 07/14/24 07:42 07/14/24 07:42
PE: Unchanged with the exception of mild increased distention of the abdomen.
Lab Results:
Laboratory Data
WBC 9.7 10^3/uL (4.8-10.8) 07/14/24 06:16
Hgb 12.2 g/dL (13.0-18.0) L 07/14/24 06:16
Plt Count 133 10^3/uL (130-400) 07/14/24 06:16
PT 16.5 Sec (11.4-14.6) H 07/14/24 06:16
INR 1.35 07/14/24 06:16
eGFR > 60.00 07/14/24 06:16
Orders
Orders
Orders From Last 24 Hours
07/13/24 16:25
Phytonadione [Mephyton] 5 mg PO NOW STA
07/13/24 16:30
US Periph Venous LOWER Ext Chris Urgent
--- NOTE | 2024-07-14 10:42 | W.PN.HOSP.TC ---
Today's Communication/Plan
-
cont Abx for OR
Assessment / Plan
Assessment / Plan
69yo M with PMHx of HTN, HLD, DVT on life-long Coumadin , GERD, allergic rhinitis came with acute onset of abdominal pain in the morning before admission, found acute non-perforated appendicitis
A/P:
#Acute non-perforated appendicitis
NPO
Zosyn
GEnSx for mgmt
pain mgmt
Add Orimef as Dilaudid did not last long enough even with frequent injections (to avoid significant sedation with additional opioids)
#Hx of DVT on life long AC
s/p vit K 10mg in ED
Follow INR, pending <2.0 for surgical intervention and heparin bridging
S/P FFP as per Oncology
LE US neg for DVT
Plan for heparin/lovenox bridge to Coumadin when deemed appropriate by [facility] (patient knows how to self-inject Lovenox)
#Hepatic cysts
#L renal cyst
#Diverticulosis
High fiber diet
no additional f/u
#GERD
#Essential HT
#HLD
cont home meds when able
Use IV labetalol if needed for BP >180/105
DVT ppx - see above
FUll code
I have spent at least 59min reviewing chart, test results, communicating with consultants and direct patient care
Anticipated Discharge: > 48 hours
Subjective/Interval History
-
Date of Service: July 14, 2024
Objective Data
-
Labs:
Laboratory Results
07/14/24 07/14/24 07/14/24
00:09 06:16 11:00
WBC 9.7
Hgb 12.2 L
Hct 34.8 L
Plt Count 133
PT 17.4 H 16.5 H Pending
INR 1.45 1.35 Pending
Sodium 137
Potassium 3.8
Chloride 101
Carbon Dioxide 28
BUN 11
Creatinine 0.9
Glucose 126 H
Calcium 8.7
Total Bilirubin 1.8 H
AST 20
ALT 19
Alkaline Phosphatase 44
07/14/24
23:00
WBC
Hgb
Hct
Plt Count
PT Pending
INR Pending
Sodium
Potassium
Chloride
Carbon Dioxide
BUN
Creatinine
Glucose
Calcium
Total Bilirubin
AST
ALT
Alkaline Phosphatase
Vital Signs:
Vital Signs
Temp Pulse Resp BP Pulse Ox
98.7 F 61 16 134/68 98
07/14/24 07:42 07/14/24 07:42 07/14/24 07:42 07/14/24 07:42 07/14/24 07:42
I&O
07/13/24 07/14/24 07/15/24
07:59 06:59 06:59
Intake Total
Balance
Review of Systems
-
History Source: Patient
All other systems: Reviewed and negative
Abdomen/GI: Reports Abdominal Pain
Physical Exam
-
General: No Apparent Distress
HEENT: Normocephalic
Respiratory: Clear to Auscultation
Cardiac: Regular Rhythm
GI: Soft and Tender
Musculoskeletal: No Clubbing, No Cyanosis and No Edema
Neuro: Awake, Alert, Oriented and AO x 3
Psych: Calm
--- NOTE | 2024-07-14 12:39 | W.PN.CRS1 ---
Today's Communication / Plan
-
OR
Assessment/Plan
-
Acute appendicitis.
1. INR has normalized and no need for IVC filter. Appreciate Dr. Merchant's help.
2. OR today for laparoscopic appendectomy.
Subjective Data
Subjective Data
Date of Service: July 14, 2024
Still RLQ pain--about the same.
Objective Data
-
Vital Signs
Temp Pulse Resp BP Pulse Ox
98.7 F 61 16 134/68 98
07/14/24 07:42 07/14/24 07:42 07/14/24 07:42 07/14/24 07:42 07/14/24 07:42
Intake & Output
07/13/24 07/14/24 07/15/24
07:59 06:59 06:59
Intake Total
Balance
Intake:
Oral fluids
IV fluids (Total)
IV piggybacks
Blood Product Amount Infused (
mL)
Ffp24 Divided Unit Part 2 Unit
[id number]
Fresh Frozen Plasma 24 Hours
Unit [id number]
Fresh Frozen Plasma 24 Hours
Unit [id number]
Other:
Number of approximated MODERATE
amounts of urine
Number of approximated LARGE
amounts of urine
Lab Results
07/14/24 06:16
07/14/24 06:16
Physical Exam
-
General: No Acute Distress
Chest: Clear
Cardiovascular: Regular Rate & Rhythm
Abdomen: Non Distended and Tender (RLQ)
Extremities: No Edema, No Calf Tenderness and Grossly Normal
Skin: Warm and Dry
--- NOTE | 2024-07-14 14:08 | W.IMMPOSTOP ---
Addendum entered and electronically signed by Shawn Trejo MD 07/14/24 14:15:
Patient's updated via phone conversation.
Original Note:
Surgical Immed Post Op Note
-
Primary Surgeon: Patrice Treoj MD
Assisting Surgeon: none
Pre-op Diagnosis: acute appendicitis
Post-op Diagnosis: same
Procedure Performed: laparoscopic appendectomy
Anesthesia Type: general plus local
Specimen / Cultures: appendix
Estimated Blood Loss: 15 cc
Complications: no immediate
Operative Findings: inflamed nonperforated appendix
Sending back to med surg.
Continue antibiotics another 24 hrs.
--- NOTE | 2024-07-14 15:22 | PTCARENOTE ---
Received patient from PACU via bed around 1515 in stable condition.
[2024-07-14] MEDS: NORMOSOL-R/PLASMALYTE-A 1000 IV (15:38)
[2024-07-14] MEDS: TYLENOL 650 MG PO ×3 (15:41→23:05)
[2024-07-14] MEDS: ZETIA 10 MG PO (18:34)
[2024-07-14] MEDS: CRESTOR 40 MG PO (18:34)
[2024-07-15] MEDS: ZOSYN 50 IV ×2 (03:40→10:28)
[2024-07-15] MEDS: TYLENOL 650 MG PO ×2 (03:40→08:04)
[2024-07-15] MEDS: NORMOSOL-R/PLASMALYTE-A 1000 IV (03:40)
[2024-07-15 03:44] VITALS: BP 130/71
[2024-07-15 07:40] VITALS: BP 121/65
[2024-07-15] MEDS: PROTONIX 40 MG PO (07:55)
[2024-07-15] MEDS: NORVASC 10 MG PO (07:56)
[2024-07-15] MEDS: DIOVAN 320 MG PO (07:57)
--- NOTE | 2024-07-15 09:24 | W.PN.CRS1 ---
Today's Communication / Plan
-
as below
Assessment/Plan
-
59-year-old male with PMH of DVT (on Coumadin), GERD, HTN, HLD who presented with acute appendicitis
POD 1 laparoscopic appendectomy
AFVSS
Labs pending
�If Hb stable on this morning's labs, okay for anticoagulation; appreciate hematology
� Advance to regular diet
� Pain control with Tylenol and Dilaudid as needed; add oxycodone as needed
� Okay to DC antibiotics
� OOB/IS
� Appreciate hospitalist
Subjective Data
Subjective Data
Date of Service: July 15, 2024
No overnight events.
Pain controlled.
Denies nausea/vomiting. Tolerating diet.
+flatus -BMs +voiding
Objective Data
-
Vital Signs
Temp Pulse Resp BP Pulse Ox
98.4 F 50 16 121/65 98
07/15/24 07:40 07/15/24 07:56 07/15/24 07:40 07/15/24 07:56 07/15/24 07:40
Intake & Output
07/14/24 07/15/24 07/16/24
06:59 06:59 06:59
Intake Total 2410 / 2410
Output Total 175 / 175
Balance 2235 / 2235
Intake:
Oral fluids 1200 / 1200
IV fluids (Total) 1110 / 1110
Normosol 150 / 150
IV piggybacks 100 / 100
Blood Product Amount Infused (
mL)
Ffp24 Divided Unit Part 2 Unit
[id number]
Fresh Frozen Plasma 24 Hours
Unit [id number]
Fresh Frozen Plasma 24 Hours
Unit [id number]
Output:
Urine, Voided 175 / 175
Other:
Number of approximated MODERATE 2
amounts of urine
Number of approximated LARGE 1
amounts of urine
Physical Exam
-
General: No Acute Distress and AOx3
HEENT: Grossly Normal
Abdomen: Soft, Distended (Mildly distended, not tympanitic), Tender (Appropriately tender near incisions), No Guarding and No Rebound
Skin: Warm and Dry
Wound: No Signs of Infection, Dressing in Place (With Dermabond) and No Skin Erythema
[2024-07-15 09:54] LABS: % Eosinophils 0.2 % (0-6); % Immature Granulocytes 0.4 % (0-0.5); % Lymphocytes 6.3 % (20.5-51.1); % Monocytes 3.7 % (1.7-9.3); % Neutrophils 89.4 % (42.2-75.2); Absolute Lymphocytes 0.6 10^3/uL (1.2-3.4); Absolute Monocytes 0.3 10^3/uL (0.1-0.6); Absolute Neutrophils 8.1 10^3/uL (1.4-6.5); Hemoglobin 11.9 g/dL (13.0-18.0); Mean Corpuscular Hgb 31.2 pg (27.0-31.0); Mean Platelet Volume 9.9 fL (7.4-10.4); Nucleated Red Blood Cells % 0 % (-); Platelet Count 138 10^3/uL (130-400); Red Blood Cell Count 3.82 10^6/uL (4.70-6.10)
[2024-07-15 10:03] LABS: INR 1.26; PT 15.6 Sec (11.4-14.6)
[2024-07-15 10:46] LABS: ALT (SGPT) 25 U/L (0-50); AST (SGOT) 27 U/L (17-59); Albumin 3.7 g/dl (3.5-5.0); Alkaline Phosphatase 60 U/L (38-126); Blood Urea Nitrogen 15 mg/dl (9-20); Calcium 8.6 mg/dl (8.4-10.2); Carbon Dioxide 26 mmol/L (22-30); Chloride 97 mmol/L (98-107); Estimated Creatinine Clearance 94 ml/min; Glucose 169 mg/dl (70-99); Magnesium 2.2 mg/dl (1.6-2.3); Sodium 137 mmol/L (135-145); Total Protein 6.1 g/dl (6.3-8.2); eGFR > 60.00
--- NOTE | 2024-07-15 11:00 | CM ---
Addendum entered by Shari Mendoza RN 07/15/24 15:28:
Patient's spouse will provide transportation home.
Addendum entered by Shari Mendoza RN 07/15/24 13:51:
IMM reviewed and placed on chart.
Original Note:
Reviewed the chart notes and spoke with the patient and his spouse at the bedside. CM continues to be available to patient/family and is monitoring medical plan for needs at discharge.
Plan: Discharge to home when medically stable. No anticipated needs at discharge.
[2024-07-15] MEDS: LOVENOX 80 MG SC (11:40)
--- NOTE | 2024-07-15 13:08 | W.PN.HOSP.TC ---
Addendum entered and electronically signed by Jl Fonseca MD 07/15/24 15:22:
Patient tolerated lunch. Ambulating in the hallway. Discussed with surgeon Dr. Stan Finley and okay for discharge. Surgeon stated low risk of bleeding post lap appendectomy. Patient restarted on Lovenox and Coumadin per oncology recs. Patient
did not want to be started on Eliquis.
More than 30 minutes spent in discharge including
Final examination of the patient
Summarizing hospital stay
Instructions for continuing care to all relevant caregivers
Preparation of discharge records, prescriptions, and referral forms
Total time spent (in minutes): 40
Addendum entered and electronically signed by Jl Fonseca MD 07/15/24 15:04:
Error in dictation-It should read status post laparoscopic appendectomy
Original Note:
Today's Communication/Plan
-
monitor for diet tolerance
Lovenox/coumadin
OOB
stop Abx
Assessment / Plan
Assessment / Plan
69yo M with PMHx of HTN, HLD, DVT on life-long Coumadin , GERD, allergic rhinitis came with acute onset of abdominal pain in the morning before admission, found acute non-perforated appendicitis
A/P:
#Acute non-perforated appendicitis
Status post laparoscopic cholecystectomy
Colorectal okay to DC antibiotic
Diet advance
Okay to restart anticoagulation. Hemoglobin stable.
DC IV fluids
#Hx of DVT on life long AC
s/p vit K
S/P FFP as per Oncology
LE US neg for DVT
Plan for heparin/lovenox bridge to Coumadin when deemed appropriate by [facility] (patient knows how to self-inject Lovenox)
Oncology correspondence noted and started patient on Lovenox 80 mg every 12 with loading dose of Coumadin at 12 mg.
#Hepatic cysts
#L renal cyst
#Diverticulosis
High fiber diet
no additional f/u
#GERD
#Essential HT
#HLD
cont home meds when able
Use IV labetalol if needed for BP >180/105
DVT ppx - see above
FUll code
Discussed with spouse at bedside
Anticipated Discharge: Today
Subjective/Interval History
-
Date of Service: July 15, 2024
Tolerating diet
Passing flatulence
Drinking coffee
Objective Data
-
Labs:
Laboratory Results
07/15/24
09:15
WBC 9.0
Hgb 11.9 L
Hct 34.0 L
Plt Count 138
PT 15.6 H
INR 1.26
Sodium 137
Potassium 4.0
Chloride 97 L
Carbon Dioxide 26
BUN 15
Creatinine 0.8
Glucose 169 H
Calcium 8.6
Total Bilirubin 1.0
AST 27
ALT 25
Alkaline Phosphatase 60
Vital Signs:
Vital Signs
Temp Pulse Resp BP Pulse Ox
98.4 F 50 16 121/65 98
07/15/24 07:40 07/15/24 07:56 07/15/24 07:40 07/15/24 07:56 07/15/24 07:40
I&O
07/14/24 07/15/24 07/16/24
06:59 06:59 06:59
Intake Total 2410 / 2410
Output Total 175 / 175
Balance 2235 / 2235
Physical Exam
-
General: Well Developed, Well Nourished and No Apparent Distress
HEENT: Normocephalic, Atraumatic and Moist Mucous Membranes
Respiratory: Clear to Auscultation
Cardiac: Regular Rhythm and S1/S2
GI: Soft and Tender
Musculoskeletal: No Clubbing, No Cyanosis and No Edema
Neuro: Awake, Alert, Oriented and AO x 3
Psych: Calm
Data Reviewed
-
Total Time Spent with Patient (in minutes): 52
[2024-07-15] MEDS: COUMADIN 12 MG PO (13:21)
--- NOTE | 2024-07-15 15:21 | W.[place]-PDMP ---
[place]PD[place]
-
Checked the [place]- Pres[place] Drug Monitoring Program website, no red flags identified; safe to proceed with prescription.
--- NOTE | 2024-07-15 15:22 | W.DCSUMMARY ---
Discharge Summary
Discharge Data
Date of Admission: 07/12/24
Date of Discharge: 07/15/24
-
Pending Results: No
Hospital Course
69yo M with PMHx of HTN, HLD, DVT on life-long Coumadin , GERD, allergic rhinitis came with acute onset of abdominal pain in the morning before admission, found acute non-perforated appendicitis. Patient on chronic coagulopathy with Coumadin and
received FFP and vitamin K. Patient INR down trended. Patient was eval by surgery and patient underwent laparoscopic appendectomy on 07/14/2024. Postop antibiotics were discontinued. Diet was advanced. IV fluid was discontinued. Hemoglobin
was stable and per oncology recommendation patient was started on Lovenox and loading dose of Coumadin 12 mg. Patient underwent lower extremity ultrasound admission which was negative for DVT bilaterally, resolution of previously seen nonocclusive
thrombus within the right popliteal vein. Patient be discharged on Lovenox and Coumadin. Patient stated he has experience injecting himself with Lovenox. Recommended INR check in 2 days. Discussed with surgery patient okay for discharge. Patient
was tolerating diet and ambulating hallways without any difficulties. Recommend to follow up with primary surgeon for post op follow up.
Discharge Plan
-
Patient Disposition: Home (Routine Discharge)
Discharge Diagnosis/Procedures: Acute non-perforated appendicitis laparoscopic appendectomy
Condition: Fair
Diet: Regular
Activity: No strenuous activity
Additional Activity: No lifting over 10lbs (gallon of milk)
Driving Restrictions: No driving for 1 week
Bathing Restrictions: OK to Shower
Blood Work: INR check in 2-3 days.
Activity Restrictions/Additional Instructions:
YOUR INR IS 1.26 on 07/15/2024
AVOID DRIVING IF TAKING OPIATES FOR PAIN
Instructions: Appendectomy, Laparoscopic Surgery (DC)
Referrals:
Shawn Trejo MD [Active] - in two weeks
Keshia Capone MD [Family Provider] - in less than 1 week
Prescriptions:
New
acetaminophen [Tylenol Extra Strength] 500 mg Tablet
1,000 mg PO Q6HPRN PRN (Reason: mild-mod pain) 7 Days Qty: 30 0RF
enoxaparin 80 mg/0.8 mL Syringe
80 mg SC Q12H 5 Days Qty: 8 0RF
Rx Instructions:
STOP ONCE INR >2
oxycodone 5 mg tablet
5 mg PO BID PRN (Reason: severe pain) Qty: 7 0RF
Continued
ranitidine HCl 300 mg Tablet
75 mg PO DAILY
polyvinyl alcohol 1.4 % Drops
1 drp BOTH EYES Q4HPRN PRN (Reason: dry eyes)
clobetasol 0.05 % Cream
1 applic TOPICAL DAILYPRN PRN (Reason: eczema breakout)
cyanocobalamin (vitamin B-12) 1,000 mcg Tablet
1,000 mcg PO DAILY
omeprazole 40 mg Capsule,Delayed Release(Dr/Ec)
40 mg PO DAILY
lorazepam 0.5 mg Tablet
0.5 mg PO DAILYPRN PRN (Reason: panic)
calcium carbonate 500 mg calcium (1,250 mg) Tablet
500 mg PO DAILY
meclizine 25 mg Tablet
25 mg PO TIDPRN PRN (Reason: vertigo)
amlodipine 10 mg Tablet
10 mg PO DAILY
warfarin 5 mg Tablet
5 mg PO QPM
valsartan 320 mg Tablet
320 mg PO DAILY
azelastine 137 mcg (0.1 %) [place],Non-Aerosol
2 spray INTRANASAL BIDPRN PRN (Reason: congestion)
vitamin E 268 mg (400 unit) Capsule
268 mg PO DAILY
ezetimibe 10 mg Tablet
10 mg PO QPM
rosuvastatin 40 mg Tablet
40 mg PO QPM
tadalafil 10 mg Tablet
10 mg PO DAILYPRN PRN (Reason: ed)
cholecalciferol (vitamin D3) [Vitamin D3] 50 mcg (2,000 unit) Tablet
50 mcg PO DAILY
Discharge Orders:
Discharge Patient (As Directed); Ordered 07/15/24
Ordered By: Jl Fonseca
Discharge Date and Time
Discharge Date/Time: 07/15/24 16:15
Print Language: DUTCH
[2024-07-15 15:45] VITALS: BP 136/68
[2024-07-15 19:00] LABS: Hepatitis C Antibody Negative (Negative)
== END 2024-07-15 16:15 | disposition home or self-care (01) | DRG 399 ==
LOC: 2 SOUTH 16:12
PROVIDERS: Internal Medicine; Physician Assistant; Physician Assistant Medical; Surgery; ADMITTING PHYSICIAN Hospitalist; ATTENDING PHYSICIAN Hospitalist; CONSULT PHYSICIAN Internal Medicine Hematology & Oncology; CONSULT PHYSICIAN Surgery; EMERGENCY PHYSICIAN Emergency Medicine; FAMILY PHYSICIAN Family Medicine
PROC: 30233K1 Transfusion of Nonautologous Frozen Plasma into Peripheral Vein, Percutaneous Approach (ICD-10-PCS; 2024-07-13)
PROC: 0WQF4ZZ Repair Abdominal Wall, Percutaneous Endoscopic Approach (ICD-10-PCS; 2024-07-14)
PROC: 0DTJ4ZZ Resection of Appendix, Percutaneous Endoscopic Approach (ICD-10-PCS; 2024-07-14)
DX: K35.31 Acute appendicitis with localized peritonitis and gangrene, without perforation (principal); I10 Essential (primary) hypertension; K76.89 Other specified diseases of liver; K42.9 Umbilical hernia without obstruction or gangrene; K38.1 Appendicular concretions; E78.00 Pure hypercholesterolemia, unspecified; G89.29 Other chronic pain; M54.2 Cervicalgia; J30.9 Allergic rhinitis, unspecified; K21.9 Gastro-esophageal reflux disease without esophagitis; N28.1 Cyst of kidney, acquired; K57.30 Diverticulosis of large intestine without perforation or abscess without bleeding; Z79.01 Long term (current) use of anticoagulants; Z79.899 Other long term (current) drug therapy; Z86.718 Personal history of other venous thrombosis and embolism; Z87.19 Personal history of other diseases of the digestive system
CPT/HCPCS: 88304; 74177; 80048; 80053; 81003; 81015; 83036; 83735; 85025; 85027; 85610; 86803; 86850; 86900; 86901; 93970; 96365; 96375; 96376; 99285; P9059; Q9967

== ENCOUNTER 2024-07-28 17:12 | Emergency (ER) | payer MEDICARE, OTHER, SELFPAY ==
[2024-07-28 17:14] VITALS: BP 104/54
[2024-07-28 17:30] VITALS: BP 112/62
[2024-07-28 17:41] VITALS: BMI 23.0
--- NOTE | 2024-07-28 17:47 | ED.GENMED ---
History of Present Illness
General
Chief Complaint: Abdominal Pain
Source: patient
Time Seen by Provider: 07/28/24 17:33
History of Present Illness
History of Present Illness:
69-year-old male presents to the emergency room complaining of lower abdominal pain. Patient is postoperative day #14 from an appendectomy. Temperature was measured to be 102 at home earlier. Last dose of Tylenol was this morning. He is nauseous
but has not vomited. He has not had a bowel movement for 3 days. Decreased oral intake.
While in triage the patient had an episode of unresponsiveness. He did have some tonic-clonic jerking. The patient was having abdominal pain and was nauseous at the time. He has no seizure history. Patient quickly regained consciousness and
returned to baseline.
Past History
Past History
ED Past Medical History: HTN, Hypercholesterolemia and Other (chronic neck pain)
Social History
Personal:
Living: with family
Phy Exam
Physical Exam
Physical Exam:
General: Awake, Alert, Oriented X3. No acute distress.
Vitals: unremarkable
Head: Atraumatic
Eyes: Pupils equal, EOMI
Throat: Airway intact, no exudates
Neck: Trachea midline
Lungs: Clear and equal b/l
Heart: Regular rate, no murmurs
Abd: Postoperative ecchymosis noted. Incisions are intact, quite tender to palpation in the lower abdomen mostly on the left. Positive rebound.
Neuro: Nonfocal
Skin: Warm, dry, no rash
Extremities: pulses equal b/l, no edema
Sepsis
Sepsis Screening
Sepsis Assessment: Sepsis Ruled Out
Sepsis Screen
Sepsis Screen: Sepsis Ruled Out
Date: 07/29/24
Time: 01:21
Course
Orders/Labs/Results
Orders:
Orders
07/28/24 17:25
Electrocardiogram (*1) Stat
Reason for Study: Chest Pain
Electrocardiogram (*1) Urgent
Reason for Study: Syncope
EKG- Treatment ONCE
07/28/24 17:44
HYDROmorphone [Dilaudid] 1 mg IV NOW STA
Iohexol [Omnipaque] See Protocol PO NOW STA
Ondansetron Injectable [Zofran] 4 mg IV NOW STA
07/28/24 17:45
CT Abd/pel W Iv And Oral Contr Urgent
Comment:
Reason For Exam: fever, rlq pain, POD #14 appy
07/28/24 17:46
Lactated Ringers [Lr] 1,000 ml IV BOLUS
07/28/24 18:00
Complete Blood Count/With Diff Urgent
Comprehensive Metabolic Panel Urgent
Prothrombin Time Urgent
07/28/24 19:17
Type+Screen Urgent
07/28/24 20:56
Amoxicillin 875 mg/Clav 125 mg [Augmentin 875 mg/125 mg] 1 tablet PO NOW STA
Abnormal Lab Results
07/28/24
18:00
WBC 14.8 H 10^3/uL
(4.8-10.8)
RBC 4.08 L 10^6/uL
(4.70-6.10)
Hgb 12.8 L g/dL
(13.0-18.0)
Hct 37.2 L %
(39.0-52.0)
MCH 31.4 H pg
(27.0-31.0)
Abs Immat Gran (auto) 0.1 H 10^3/uL
(0-0.05)
Absolute Neuts (auto) 11.6 H 10^3/uL
(1.4-6.5)
Absolute Monos (auto) 1.2 H 10^3/uL
(0.1-0.6)
Neutrophils % 78.9 H %
(42.2-75.2)
Lymphocytes % 11.7 L %
(20.5-51.1)
PT 28.9 H Sec
(11.4-14.6)
Carbon Dioxide 18 L mmol/L
(22-30)
Total Bilirubin 1.6 H mg/dl
(0.2-1.3)
07/28/24 18:00
07/28/24 18:00
Vital Signs
Initial and Last Documented VS:
Initial Vital Signs
Temp Pulse Resp BP Pulse Ox
98.4 F 80 20 104/54 99
07/28/24 17:14 07/28/24 17:14 07/28/24 17:14 07/28/24 17:14 07/28/24 17:14
Last Documented Vital Signs
Temp Pulse Resp BP Pulse Ox
98.4 F 73 17 126/67 99
07/28/24 17:14 07/28/24 20:45 07/28/24 20:45 07/28/24 19:00 07/28/24 17:14
MDM/Problems Addressed
Differential Diagnosis Includes:
Intra-abdominal abscess, urinary tract infection, wound infection
MDM/Problems Addressed:
I believe the episode in triage was a vasovagal syncope event. Given he does not have a history of seizures and the overall context of the event I think seizure is very very unlikely. No further workup for this other than evaluating his abdominal
pain.
CT shows diverticulitis. There is no collection or evidence for postoperative complication. I discussed options of hospitalization versus discharge on oral antibiotics. Patient would prefer to go home. Dose of Augmentin given here and a
prescription sent to the pharmacy. Patient understands he should return if he feels as if he get worse or if he is no better in 48 hours
*Radiology
Radiology exam reviewed: radiology read reviewed
*Pulse Oximetry
Patient hypoxic: no
*EKG
Interpreted by ED Provider?: Yes
Heart Rate: 72
Rate: normal
Rhythm: sinus
QRS Pattern: right bundle branch block
Ischemia: no ischemia
*Machinery Cleaner Interpretation
Rate: normal
Interpretation: normal
Rhythm: sinus
*Critical Care Note
Total Time (30-74mins, 75-104mins- exclusive of procedures): Not Applicable
ED Attending Note
-
Portions of this chart may have been created with voice recognition software.� Occasional wrong word or��sound alike� substitutions may have occurred due to the inherent limitations of voice recognition software.
Discharge Plan
Departure
Patient Disposition: Home (Routine Discharge)
Date of Disposition: 07/28/24
Time of Disposition: 20:59
Patient with high blood pressure during this ER visit?: No
Condition: Good
Discharge Problem:
Acute diverticulitis, Syncope, vasovagal
Instructions: Diverticulitis (DC), Abdominal Pain
Prescriptions:
New
amoxicillin-pot clavulanate 875-125 mg tablet
1 tab PO BID Qty: 14 0RF
No Action
ranitidine HCl 300 mg Tablet
75 mg PO DAILY
polyvinyl alcohol 1.4 % Drops
1 drp BOTH EYES Q4HPRN PRN (Reason: dry eyes)
clobetasol 0.05 % Cream
1 applic TOPICAL DAILYPRN PRN (Reason: eczema breakout)
cyanocobalamin (vitamin B-12) 1,000 mcg Tablet
1,000 mcg PO DAILY
omeprazole 40 mg Capsule,Delayed Release(Dr/Ec)
40 mg PO DAILY
lorazepam 0.5 mg Tablet
0.5 mg PO DAILYPRN PRN (Reason: panic)
calcium carbonate 500 mg calcium (1,250 mg) Tablet
500 mg PO DAILY
meclizine 25 mg Tablet
25 mg PO TIDPRN PRN (Reason: vertigo)
amlodipine 10 mg Tablet
10 mg PO DAILY
warfarin 5 mg Tablet
5 mg PO QPM
valsartan 320 mg Tablet
320 mg PO DAILY
azelastine 137 mcg (0.1 %) [place],Non-Aerosol
2 spray INTRANASAL BIDPRN PRN (Reason: congestion)
vitamin E 268 mg (400 unit) Capsule
268 mg PO DAILY
ezetimibe 10 mg Tablet
10 mg PO QPM
rosuvastatin 40 mg Tablet
40 mg PO QPM
tadalafil 10 mg Tablet
10 mg PO DAILYPRN PRN (Reason: ed)
cholecalciferol (vitamin D3) [Vitamin D3] 50 mcg (2,000 unit) Tablet
50 mcg PO DAILY
acetaminophen [Tylenol Extra Strength] 500 mg Tablet
1,000 mg PO Q6HPRN PRN (Reason: mild-mod pain) 7 Days Qty: 30 0RF
enoxaparin 80 mg/0.8 mL Syringe
80 mg SC Q12H 5 Days Qty: 8 0RF
Rx Instructions:
STOP ONCE INR >2
oxycodone 5 mg tablet
5 mg PO BID PRN (Reason: severe pain) Qty: 7 0RF
Referrals:
Keshia Capone MD [Family Provider] -
Activity Restrictions/Additional Instructions:
You can take 1000mg of Tylenol and 600mg of ibuprofen every 6 hours for pain. If this does not help then take one of the oxycodone that you have from your appendectomy. You should begin to feel better in 48 hours. Return to the ER if you are not
feeling better or if you feel you are getting worse.
Interventions
Interventions:
*Risk Screen - Suicide Last Done: 07/28/24 17:14
*General Assessment Last Done: 07/28/24 17:42
*Neglect/Abuse Screening Last Done: 07/28/24 17:14
ED- Fall Risk Assessment Last Done: 07/28/24 18:12
*ED COVID-19 Vaccine History Last Done: 07/28/24 17:42
*Nursing Disposition Last Done: 07/28/24 21:24
JE-[id number]-[id number] Assessment Last Done: 07/28/24 17:44
Discharge Date and Time
Discharge Date/Time: 07/28/24 21:24
Print Language: SRI LANKAN
[2024-07-28] MEDS: OMNIPAQUE 50 ML PO (17:57)
[2024-07-28] MEDS: ZOFRAN 4 MG IV (17:57)
[2024-07-28] MEDS: LR 1000 IV (17:57)
[2024-07-28] MEDS: DILAUDID 1 MG IV (17:58)
[2024-07-28 18:00] VITALS: BP 112/59
[2024-07-28 18:15] LABS: % Basophils 0.3 % (0-2); % Eosinophils 0.5 % (0-6); % Immature Granulocytes 0.3 % (0-0.5); % Lymphocytes 11.7 % (20.5-51.1); % Monocytes 8.3 % (1.7-9.3); % Neutrophils 78.9 % (42.2-75.2); Absolute Eosinophils 0.1 10^3/uL (0-0.7); Absolute Immature Granulocytes 0.1 10^3/uL (0-0.05); Absolute Lymphocytes 1.7 10^3/uL (1.2-3.4); Absolute Monocytes 1.2 10^3/uL (0.1-0.6); Absolute Neutrophils 11.6 10^3/uL (1.4-6.5); Hematocrit 37.2 % (39.0-52.0); Hemoglobin 12.8 g/dL (13.0-18.0); Mean Corp Hgb Conc. 34.4 g/dL (33.0-37.0); Mean Corpuscular Hgb 31.4 pg (27.0-31.0); Mean Corpuscular Volume 91.2 fL (80.0-94.0); Mean Platelet Volume 9.5 fL (7.4-10.4); Nucleated Red Blood Cells % 0 % (-); Platelet Count 211 10^3/uL (130-400); Red Blood Cell Count 4.08 10^6/uL (4.70-6.10); Red Cell Dist. Width 14.1 % (11.5-14.5); White Blood Cell Count 14.8 10^3/uL (4.8-10.8)
[2024-07-28 18:29] LABS: INR 2.74; PT 28.9 Sec (11.4-14.6)
[2024-07-28 18:36] LABS: ALT (SGPT) 24 U/L (0-50); AST (SGOT) 27 U/L (17-59); Albumin 4.5 g/dl (3.5-5.0); Alkaline Phosphatase 46 U/L (38-126); Blood Urea Nitrogen 15 mg/dl (9-20); Calcium 9.4 mg/dl (8.4-10.2); Carbon Dioxide 18 mmol/L (22-30); Chloride 100 mmol/L (98-107); Estimated Creatinine Clearance 77 ml/min; Glucose 98 mg/dl (70-99); Potassium 4.5 mmol/L (3.5-5.1); Sodium 136 mmol/L (135-145); Total Bilirubin 1.6 mg/dl (0.2-1.3); Total Protein 7.1 g/dl (6.3-8.2); eGFR > 60.00
[2024-07-28 19:00] VITALS: BP 126/67
[2024-07-28] MEDS: AUGMENTIN 875 MG/125 MG 1 TABLET PO (21:19)
== END 2024-07-28 21:24 | disposition home or self-care (01) ==
LOC: EMR 17:12
PROVIDERS: EMERGENCY PHYSICIAN Emergency Medicine; FAMILY PHYSICIAN Family Medicine
DX: R55 Syncope and collapse (principal); K57.32 Diverticulitis of large intestine without perforation or abscess without bleeding
CPT/HCPCS: 99285; 96374; 96375; 96361; 74177; 80053; 85025; 85610; 86850; 86900; 86901; 93005; Q9967

== ENCOUNTER → 2024-11-28 12:35 | Outpatient (REF) | payer MEDICARE, OTHER, SELFPAY | LOC: MRI 3T 12:35 | PROVIDERS: ATTENDING PHYSICIAN Orthopaedic Surgery; FAMILY PHYSICIAN Family Medicine | DX: M25.511 Pain in right shoulder (principal) | CPT/HCPCS: 73221 ==

== ENCOUNTER → 2025-01-13 15:57 | Outpatient (REF) | payer MEDICARE, OTHER, SELFPAY | LOC: RAD 15:57 | PROVIDERS: ATTENDING PHYSICIAN Family Medicine | DX: M54.50 Low back pain, unspecified (principal) | CPT/HCPCS: 74176 ==

== ENCOUNTER 2025-03-01 10:26 | Emergency (ER) | payer MEDICARE, OTHER, SELFPAY ==
[2025-03-01 10:37] VITALS: BP 139/76
--- NOTE | 2025-03-01 11:15 | ED.GENMED ---
History of Present Illness
General
Chief Complaint: Skin Surface Trauma
Source: patient
Exam Limitations: none
Time Seen by Provider: 03/01/25 11:09
History of Present Illness
History of Present Illness:
69-year-old male presents with laceration to right hand he sustained today. He stuck his hand in front of a vat washer. He notes pain and swelling surrounding the laceration of the dorsum of the hand. Last tetanus is unknown. No other
complaints
Past History
Past History
ED Past Medical History: HTN, Hypercholesterolemia and Other (chronic neck pain)
Social History
Personal:
Living: with family
Phy Exam
Physical Exam
Physical Exam:
General: Well-appearing male flap type laceration dorsum of the right hand measuring about 2.5 cm. Mild surrounding erythema and swelling able to fully extend all the fingers of the right hand able to make a full fist. No obvious subcutaneous
emphysema to palpation
Good sensation to the right fingers
Course
Orders/Labs/Results
Orders:
Orders
03/01/25 11:15
Tetanus/Diphth/Acelpertussis [Adacel] 0.5 ml IM .ONCE ONE
CR Hand - Right Min 3 Views Urgent
Comment:
Reason For Exam: laceration
Vital Signs
Initial and Last Documented VS:
Initial Vital Signs
Temp Pulse Resp BP Pulse Ox
98.1 F 60 18 139/76 96
03/01/25 10:37 03/01/25 10:37 03/01/25 10:37 03/01/25 10:37 03/01/25 10:37
Last Documented Vital Signs
Temp Pulse Resp BP Pulse Ox
98.1 F 60 18 139/76 96
03/01/25 10:37 03/01/25 10:37 03/01/25 10:37 03/01/25 10:37 03/01/25 11:16
MDM/Problems Addressed
Differential Diagnosis Includes:
wet washer machine laceration right hand. X-ray pending. Concern for underlying nidus for infection. Tetanus vaccine will be updated. Will require suture closure consider antibiotics
*Pulse Oximetry
SaO2: 96
Oxygen Mode of Delivery: Room air
Patient hypoxic: no
*Critical Care Note
Total Time (30-74mins, 75-104mins- exclusive of procedures): Not Applicable
Update Note
Update Note:
X-ray of the hand demonstrates no bony abnormality. There is soft tissue gas noted extending from the wound. Patient is not a diabetic however he is on Coumadin. The wound was copiously irrigated with saline and anesthetized with 1% lidocaine.
The wound was then closed with 4-0 Prolene sutures in a running fashion. 5 sutures were required. No dressing applied. Tetanus vaccine updated we will start on Keflex for prophylaxis given the nature of the wound
ED Attending Note
-
Portions of this chart may have been created with voice recognition software.� Occasional wrong word or��sound alike� substitutions may have occurred due to the inherent limitations of voice recognition software.
Discharge Plan
Departure
Patient Disposition: Home (Routine Discharge)
Date of Disposition: 03/01/25
Time of Disposition: 12:40
Patient with high blood pressure during this ER visit?: No
Discharge Problem:
Laceration
Instructions: Laceration Repair With Stitches (DC)
Prescriptions:
New
cephalexin 500 mg capsule
500 mg PO Q6H 7 Days Qty: 28 0RF
No Action
ranitidine HCl 300 mg Tablet
75 mg PO DAILY
polyvinyl alcohol 1.4 % Drops
1 drp BOTH EYES Q4HPRN PRN (Reason: dry eyes)
clobetasol 0.05 % Cream
1 applic TOPICAL DAILYPRN PRN (Reason: eczema breakout)
cyanocobalamin (vitamin B-12) 1,000 mcg Tablet
1,000 mcg PO DAILY
omeprazole 40 mg Capsule,Delayed Release(Dr/Ec)
40 mg PO DAILY
lorazepam 0.5 mg Tablet
0.5 mg PO DAILYPRN PRN (Reason: panic)
calcium carbonate 500 mg calcium (1,250 mg) Tablet
500 mg PO DAILY
meclizine 25 mg Tablet
25 mg PO TIDPRN PRN (Reason: vertigo)
amlodipine 10 mg Tablet
10 mg PO DAILY
warfarin 5 mg Tablet
5 mg PO QPM
valsartan 320 mg Tablet
320 mg PO DAILY
azelastine 137 mcg (0.1 %) [place],Non-Aerosol
2 spray INTRANASAL BIDPRN PRN (Reason: congestion)
vitamin E 268 mg (400 unit) Capsule
268 mg PO DAILY
ezetimibe 10 mg Tablet
10 mg PO QPM
rosuvastatin 40 mg Tablet
40 mg PO QPM
tadalafil 10 mg Tablet
10 mg PO DAILYPRN PRN (Reason: ed)
cholecalciferol (vitamin D3) [Vitamin D3] 50 mcg (2,000 unit) Tablet
50 mcg PO DAILY
acetaminophen [Tylenol Extra Strength] 500 mg Tablet
1,000 mg PO Q6HPRN PRN (Reason: mild-mod pain) 7 Days Qty: 30 0RF
enoxaparin 80 mg/0.8 mL Syringe
80 mg SC Q12H 5 Days Qty: 8 0RF
Rx Instructions:
STOP ONCE INR >2
oxycodone 5 mg tablet
5 mg PO BID PRN (Reason: severe pain) Qty: 7 0RF
amoxicillin-pot clavulanate 875-125 mg tablet
1 tab PO BID Qty: 14 0RF
Referrals:
UNKNOWN,NO INTERVIEW [Unknown Provider]
Activity Restrictions/Additional Instructions:
Take antibiotics as directed. Have sutures removed in 10-14 days. Watch for signs of infection. Return if needed otherwise
Interventions
Interventions:
*Risk Screen - Suicide Last Done: 03/01/25 10:37
*General Assessment Last Done: 03/01/25 10:37
*Neglect/Abuse Screening Last Done: 03/01/25 10:39
*ED- Fall Risk Assessment Last Done: 03/01/25 11:06
*ED COVID-19 Vaccine History Last Done: 03/01/25 11:06
ED-Skin Assessment Last Done: 03/01/25 11:06
Discharge Date and Time
Print Language: AMERICAN
[2025-03-01] MEDS: ADACEL 0.5 ML IM (11:24)
[2025-03-01 12:49] VITALS: BP 131/78
== END 2025-03-01 12:50 | disposition home or self-care (01) ==
LOC: EMR 10:26
PROVIDERS: EMERGENCY PHYSICIAN Emergency Medicine; FAMILY PHYSICIAN Obstetrics & Gynecology Gynecology
DX: S61.411A Laceration without foreign body of right hand, initial encounter (principal); W29.8XXA Contact with other powered hand tools and household machinery, initial encounter; I10 Essential (primary) hypertension; E78.00 Pure hypercholesterolemia, unspecified; G89.29 Other chronic pain; Z79.01 Long term (current) use of anticoagulants; Z23 Encounter for immunization
CPT/HCPCS: 90471; 12001; 99283; 73130; 90715

== ENCOUNTER → 2025-03-12 06:58 | Outpatient (REF) | payer MEDICARE, OTHER, SELFPAY | LOC: MRI 06:58 | PROVIDERS: ATTENDING PHYSICIAN Family Medicine | DX: M51.360 Other intervertebral disc degeneration, lumbar region with discogenic back pain only (principal); M54.50 Low back pain, unspecified | CPT/HCPCS: 72148 ==

== ENCOUNTER 2025-05-05 06:34 | Day surgery (SDC) | payer MEDICARE, OTHER, SELFPAY | END 2025-05-05 15:16 | disposition home or self-care (01) | LOC: GI 06:34 | PROVIDERS: ATTENDING PHYSICIAN Internal Medicine Gastroenterology | DX: Z12.11 Encounter for screening for malignant neoplasm of colon (principal); D12.0 Benign neoplasm of cecum; K57.30 Diverticulosis of large intestine without perforation or abscess without bleeding; K64.8 Other hemorrhoids; Z86.0100 Personal history of colon polyps, unspecified; Z79.01 Long term (current) use of anticoagulants | CPT/HCPCS: 45385; 88305 ==